=== PATIENT | female | born 2000 | race Two or more races ===

== ENCOUNTER 2023-02-11 18:48 | Emergency (ER) | payer MEDICAID, OTHER ==
[~2023-02-11] VITALS: Ht 172.7 cm; Wt 87.0 kg
[2023-02-11] MEDS: LORazepam 2MG/ML-1ML VIAL IV ONE ×2 (18:50→19:03)
[2023-02-11] MEDS ORDERED: SODIUM CHLORIDE 0.9% 1,000 ML IVB ONE (19:15)
[2023-02-11 19:42] LABS: Basophils # (auto) 0.1 10 ^3/uL (0-0.2); Basophils % (auto) 0.8 % (0.0-2.0); Eosinophils # (auto) 0.1 10 ^3/uL (0-0.8); Eosinophils % (auto) 1.6 % (0.0-7.0); Hematocrit 39.9 % (36.0-46.0); Hemoglobin 14.2 g/dL (12.2-16.2); Lymphocytes % (auto) 26.6 % (10.0-50.0); Mean Corpuscular Hemoglobin 31.2 pg (28.0-32.0); Mean Corpuscular Hgb Conc. 35.6 g/dL (32.0-36.0); Mean Corpuscular Volume 87.5 fL (80.0-100.0); Monocytes # (auto) 0.6 10 ^3/uL (0-1.3); Monocytes % (auto) 8.7 % (0.0-12.0); Neutrophils # (auto) 4.6 10 ^3/uL (1.6-8.6); Neutrophils % (auto) 62.3 % (37.0-80.0); Nucleated Red Blood Cells % 0.1 %; Red Blood Cells 4.56 10^6/uL (4.0-5.20); Red Cell Distribution Width 12.6 % (11.8-14.3); White Blood Cell 7.3 10^3/uL (4.4-10.8)
[2023-02-11 20:14] LABS: Albumin 3.8 g/dL (3.4-5.0); Anion Gap 5 (5-15); Blood Alcohol < 3.0 mg/dL (0-5); Blood Urea Nitrogen 12 mg/dL (7-18); Calcium 9.7 mg/dL (8.5-10.1); Carbon Dioxide 24 mmol/L (21-32); Chloride 110 mmol/L (98-107); Glucose 98 mg/dL (74-106); Potassium 4.1 mmol/L (3.5-5.1); Sodium 139 mmol/L (136-145)
[2023-02-11 20:16] LABS: Alanine Aminotransferase 27 U/L (13-56); Alkaline Phosphatase 75 U/L (45-117); Aspartate Aminotransferase 14 U/L (15-37); BUN/Creatinine Ratio 12.1 (10.0-20.0); Bilirubin, Total 0.4 mg/dL (0.2-1.0); GFR African American 89 mL/min; GFR Non-African American 74 mL/min; Total Protein 7.5 g/dL (6.4-8.2)
[2023-02-11] MEDS ORDERED: MORPHINE SULFATE INJ 2 MG/ml SYRG IV ONE (21:00)
[2023-02-11 21:35] VITALS: BP 107/60
[2023-02-11 22:00] LABS: Alcohol, Urine < 3.0 mg/dL (0-10); Amphetamine Screen, Urine NEGATIVE (NEGATIVE); Barbiturate Scree,Urine NEGATIVE (NEGATIVE); Benzodiazephine Screen, Urine NEGATIVE (NEGATIVE); Cannabinoid Screen, Urine NEGATIVE (NEGATIVE); Cocaine Screen, Urine NEGATIVE (NEGATIVE); Opiate Scree,Urine NEGATIVE (NEGATIVE); Phencyclidine Screen, Urine NEGATIVE (NEGATIVE)
== END 2023-02-11 22:15 | disposition home or self-care (01) ==
LOC: EDUNIT# 18:48 → ER 18:48 → EDBD 18:48 → ER 22:15
DX: S40.012A Contusion of left shoulder, initial encounter (principal); R56.9 Unspecified convulsions; X58.XXXA Exposure to other specified factors, initial encounter; Y93.89 Activity, other specified; Y92.89 Other specified places as the place of occurrence of the external cause; Y99.8 Other external cause status
CPT/HCPCS: 36415; 70450; 73030; 80053; 80307; 80320; 85025; 96365; 96375; 99285; J1953; J2270; J7030; J7060

== ENCOUNTER 2023-07-05 17:06 | Emergency (ER) | payer MEDICAID ==
[~2023-07-05] VITALS: Ht 172.7 cm; Wt 86.2 kg
[2023-07-05 18:21] LABS: Urine Bacteria FEW /hpf (None Seen); Urine Blood Negative /uL (Negative); Urine Clarity HAZY (Clear); Urine Color Yellow (Yellow); Urine Protein, UAD TRACE (Negative); Urine Specific Gravity 1.016 (1.001-1.035); Urine Urobilinogen Normal (Negative); Urine WBC 16 /hpf (0 - 5); Urine pH 7.5 (5.0-8.0)
[2023-07-05] MEDS ORDERED: PROCHLORPERAZINE EDISYLATE 5 MG/ML 2ML VIAL IV ONE (18:45)
[2023-07-05] MEDS ORDERED: LORazepam 2MG/ML-1ML VIAL IV ONE (19:00)
[2023-07-05 19:08] VITALS: PULSE 118; RESP 23; O2SAT 100
[2023-07-05 19:12] LABS: Basophils # (auto) 0.1 10 ^3/uL (0-0.2); Basophils % (auto) 0.6 % (0.0-2.0); Eosinophils # (auto) 0.3 10 ^3/uL (0-0.8); Eosinophils % (auto) 2.9 % (0.0-7.0); Hematocrit 44.4 % (36.0-46.0); Hemoglobin 15.2 g/dL (12.2-16.2); Lymphocytes # (auto) 2.7 10 ^3/uL (0.4-5.4); Lymphocytes % (auto) 31.2 % (10.0-50.0); Mean Corpuscular Hemoglobin 31.2 pg (28.0-32.0); Mean Corpuscular Hgb Conc. 34.2 g/dL (32.0-36.0); Mean Corpuscular Volume 91.3 fL (80.0-100.0); Monocytes # (auto) 0.9 10 ^3/uL (0-1.3); Monocytes % (auto) 10.6 % (0.0-12.0); Neutrophils # (auto) 4.8 10 ^3/uL (1.6-8.6); Neutrophils % (auto) 54.7 % (37.0-80.0); Nucleated Red Blood Cells % 0.2 %; Red Blood Cells 4.86 10^6/uL (4.0-5.20); White Blood Cell 8.7 10^3/uL (4.4-10.8)
[2023-07-05 19:18] LABS: Amphetamine Screen, Urine Neg (NEGATIVE); Barbiturate Scree,Urine Neg (NEGATIVE); Benzodiazephine Screen, Urine Neg (NEGATIVE); Cannabinoid Screen, Urine Neg (NEGATIVE); Cocaine Screen, Urine Neg (NEGATIVE); Opiate Scree,Urine Neg (NEGATIVE); Phencyclidine Screen, Urine Neg (NEGATIVE)
[2023-07-05 19:25] VITALS: BP 143/70; PULSE 93; RESP 14; O2SAT 95
[2023-07-05 19:40] LABS: Alanine Aminotransferase 13 U/L (7-40); Albumin 5.4 g/dL (3.2-4.8); Alkaline Phosphatase 110 U/L (46-116); Anion Gap 11.6 (5-15); BUN/Creatinine Ratio 8.6 (10.0-20.0); Blood Alcohol < 3.0 mg/dL (<10); Blood Urea Nitrogen 10 mg/dL (9-23); Calcium 10.1 mg/dL (8.7-10.4); Carbon Dioxide 17.4 mmol/L (20-30); Chloride 111 mmol/L (98-107); Glucose 92 mg/dL (74-106); Potassium 3.7 mmol/L (3.5-5.1); Sodium 140 mmol/L (136-145)
[2023-07-05 19:41] LABS: Bilirubin, Total 0.4 mg/dL (0.2-1.0); Total Protein 8.3 g/dL (5.7-8.2)
[2023-07-05 20:01] LABS: Aspartate Aminotransferase 16 U/L (13-40)
[2023-07-05] MEDS ORDERED: cefTRIAXone 1GM/50ML D5W 50 ML IV ONE (21:15)
[2023-07-05] MEDS ORDERED: CIPR-173 PO (21:38)
[2023-07-06] VITALS: PULSE 61
== END 2023-07-06 01:14 | disposition home or self-care (01) ==
LOC: ER 17:06
DX: R56.9 Unspecified convulsions (principal); N39.0 Urinary tract infection, site not specified
CPT/HCPCS: 36415; 70450; 74176; 80053; 80307; 80320; 81001; 85025; 96365; 96375; 99285; J0696; J0780; J1953; J2060; J7060

== ENCOUNTER 2023-09-13 16:55 | Inpatient (IN) | payer MEDICAID ==
[~2023-09-13] VITALS: Ht 153.9 cm; Wt 89.0 kg
[~2023-09-13 16:55] MED LIST: CIPR-173 PO
[2023-09-13 18:27] LABS: Basophils # (auto) 0.1 10 ^3/uL (0-0.2); Eosinophils # (auto) 0.1 10 ^3/uL (0-0.8); Hematocrit 41.7 % (36.0-46.0); Hemoglobin 14.2 g/dL (12.2-16.2); Lymphocytes # (auto) 1.8 10 ^3/uL (0.4-5.4); Mean Corpuscular Hemoglobin 31.3 pg (28.0-32.0); Mean Corpuscular Hgb Conc. 34.1 g/dL (32.0-36.0); Mean Corpuscular Volume 91.8 fL (80.0-100.0); Monocytes # (auto) 0.5 10 ^3/uL (0-1.3); Monocytes % (auto) 9.3 % (0.0-12.0); Neutrophils # (auto) 3.5 10 ^3/uL (1.6-8.6); Neutrophils % (auto) 58.7 % (37.0-80.0); Red Blood Cells 4.54 10^6/uL (4.0-5.20); Red Cell Distribution Width 12.3 % (11.8-14.3); White Blood Cell 5.9 10^3/uL (4.4-10.8)
[2023-09-13 18:36] LABS: Albumin 4.9 g/dL (3.2-4.8); Alkaline Phosphatase 146 U/L (46-116); Anion Gap 8 (5-15); Aspartate Aminotransferase 13 U/L (13-40); Bilirubin, Total 0.3 mg/dL (0.2-1.0); Blood Urea Nitrogen 8 mg/dL (9-23); Calcium 9.4 mg/dL (8.5-10.1); Carbon Dioxide 24 mmol/L (20-30); Chloride 110 mmol/L (98-107); Glucose 98 mg/dL (74-106); Sodium 142 mmol/L (136-145); Total Protein 7.6 g/dL (5.7-8.2)
[2023-09-13 18:43] LABS: Alanine Aminotransferase < 9 U/L (7-40)
[2023-09-13] MEDS ORDERED: levETIRAcetam 1000 mg/100ml 100 ML IV ONE (19:00)
[2023-09-13] MEDS ORDERED: LORazepam 2MG/ML-1ML VIAL IV ONE (19:00)
[2023-09-13 19:28] LABS: Urine Bacteria NONE SEEN /hpf (None Seen); Urine Blood 1+ /uL (Negative); Urine Clarity Clear (Clear); Urine Color Colorless (Yellow); Urine Protein, UAD Negative (Negative); Urine Specific Gravity 1.017 (1.001-1.035); Urine Urobilinogen Normal (Negative); Urine WBC 3 /hpf (0 - 5); Urine pH 6.5 (5.0-8.0)
[2023-09-13 19:38] LABS: Amphetamine Screen, Urine Neg (NEGATIVE); Barbiturate Scree,Urine Neg (NEGATIVE); Benzodiazephine Screen, Urine Neg (NEGATIVE); Cannabinoid Screen, Urine Neg (NEGATIVE); Cocaine Screen, Urine Neg (NEGATIVE); Opiate Scree,Urine Neg (NEGATIVE); Phencyclidine Screen, Urine Neg (NEGATIVE)
[2023-09-13] MEDS ORDERED: levETIRAcetam 500 MG/5ML INJ IV ONE (20:23)
[2023-09-13] MEDS ORDERED: HYDROcodone-ACET 5/325MG TAB PO ONE (22:15)
[2023-09-13] MEDS ORDERED: TEMAZEPAM 15 MG CAP PO PRN (22:45)
[2023-09-13] MEDS ORDERED: MORPHINE SULFATE INJ 2 MG/ml SYRG IV PRN (22:45)
[2023-09-13] MEDS ORDERED: LORazepam 2MG/ML-1ML VIAL IV PRN (22:45)
[2023-09-13] MEDS ORDERED: ONDANSETRON HCL 4 MG/2 ML VIAL IV PRN (22:45)
[2023-09-13] MEDS ORDERED: NITROGLYCERIN 0.4 MG SL TAB SL PRN (22:45)
[2023-09-13 23:50] VITALS: RESP 18; O2SAT 96
[2023-09-14] MEDS: ACETAMINOPHEN 325 MG TAB PO PRN ×2 (00:31→15:50)
[2023-09-14 05:01] LABS: Chloride 110 mmol/L (98-107); Potassium 3.6 mmol/L (3.5-5.1); Sodium 141 mmol/L (136-145)
[2023-09-14 05:02] LABS: Anion Gap 7 (5-15); Calcium 8.7 mg/dL (8.7-10.4); Carbon Dioxide 24 mmol/L (20-30)
[2023-09-14 05:07] LABS: BUN/Creatinine Ratio 9.5 (10.0-20.0); Blood Urea Nitrogen 7 mg/dL (9-23); Glucose 85 mg/dL (74-106)
[2023-09-14 07:45] VITALS: RESP 18; O2SAT 98
[2023-09-14] MEDS ORDERED: LORazepam 0.5 MG TAB PO PRN (09:30)
[2023-09-14] MEDS: OXcarbazepine 300 MG TAB PO SCH ×3 (09:30→21:27)
[2023-09-14] MEDS ORDERED: OXcarbazepine 300 MG TAB PO SCH (10:00)
[2023-09-14 17:00] VITALS: BP_SYST 100; BP_SYST 118; BP_DIAS 56; BP_DIAS 66; PULSE 72; PULSE 85; RESP 16; RESP 19; TEMP 98.7; O2SAT 97; O2SAT 98
[2023-09-14 20:00] VITALS: PULSE 58
[2023-09-14 21:32] VITALS: BP 100/60; PULSE 103; RESP 14; TEMP 98.7; O2SAT 96
[2023-09-15 04:43] VITALS: BP 97/61; PULSE 61; RESP 16; TEMP 98; O2SAT 99
[2023-09-15] MEDS ORDERED: OXCA600T3 PO (07:47)
[2023-09-15] MEDS: ACETAMINOPHEN 325 MG TAB PO PRN (07:52)
[2023-09-15 08:00] VITALS: PULSE 68; PULSE 70; RESP 18; O2SAT 96
[2023-09-15 09:00] VITALS: BP 142/52; PULSE 75; RESP 15; TEMP 98.2; O2SAT 100
[2023-09-15] MEDS: OXcarbazepine 300 MG TAB PO SCH (09:20)
[2023-09-15 13:00] VITALS: BP 121/78; PULSE 82; RESP 19; TEMP 97.9; O2SAT 99
[2023-09-15 15:16] VITALS: TEMP 36.6
== END 2023-09-15 16:00 | disposition home or self-care (01) | DRG 53 ==
LOC: EDBD 16:55 → ER 16:55 → TELE 22:49 → TELE-WESTW 09-14 15:38
PROVIDERS: ADMIT Nurse Practitioner; ATTEND Nurse Practitioner Acute Care
DX: G40.401 Other generalized epilepsy and epileptic syndromes, not intractable, with status epilepticus (principal); E66.9 Obesity, unspecified; F41.9 Anxiety disorder, unspecified; Z68.37 Body mass index [BMI] 37.0-37.9, adult; Z79.899 Other long term (current) drug therapy; Z81.8 Family history of other mental and behavioral disorders; Z82.49 Family history of ischemic heart disease and other diseases of the circulatory system; Z83.3 Family history of diabetes mellitus
CPT/HCPCS: 36415; 70450; 80048; 80053; 80307; 81001; 81025; 82550; 84146; 85025; 93005; 95819; 96365; 96375; 99291; G0378

== ENCOUNTER 2023-09-21 11:58 | Emergency (ER) | payer MEDICAID ==
[~2023-09-21] VITALS: Ht 162.6 cm; Wt 90.0 kg
[2023-09-21 11:58] VITALS: BP 112/67; PULSE 110; RESP 20; O2SAT 100
[~2023-09-21 11:58] MED LIST changes: -CIPR-173 PO; +OXCA600T3 PO
[2023-09-21 13:22] LABS: Basophils # (auto) 0 10 ^3/uL (0-0.2); Basophils % (auto) 0.8 % (0.0-2.0); Eosinophils # (auto) 0 10 ^3/uL (0-0.8); Hematocrit 41.4 % (36.0-46.0); Hemoglobin 14.1 g/dL (12.2-16.2); Lymphocytes # (auto) 1.5 10 ^3/uL (0.4-5.4); Lymphocytes % (auto) 32.5 % (10.0-50.0); Mean Corpuscular Hemoglobin 31.2 pg (28.0-32.0); Mean Corpuscular Volume 91.7 fL (80.0-100.0); Monocytes # (auto) 0.4 10 ^3/uL (0-1.3); Monocytes % (auto) 8.2 % (0.0-12.0); Neutrophils # (auto) 2.6 10 ^3/uL (1.6-8.6); Neutrophils % (auto) 57.5 % (37.0-80.0); Nucleated Red Blood Cells % 0.1 %; Red Blood Cells 4.51 10^6/uL (4.0-5.20); Red Cell Distribution Width 12.2 % (11.8-14.3); White Blood Cell 4.6 10^3/uL (4.4-10.8)
[2023-09-21 13:55] LABS: Alanine Aminotransferase 13 U/L (7-40); Albumin 4.6 g/dL (3.2-4.8); Alkaline Phosphatase 80 U/L (46-116); Anion Gap 8 (5-15); Aspartate Aminotransferase 13 U/L (13-40); BUN/Creatinine Ratio 7.8 (10.0-20.0); Blood Urea Nitrogen 6 mg/dL (9-23); Calcium 9.5 mg/dL (8.5-10.1); Carbon Dioxide 23 mmol/L (20-30); Chloride 110 mmol/L (98-107); Glucose 83 mg/dL (74-106); Potassium 3.9 mmol/L (3.5-5.1); Sodium 141 mmol/L (136-145)
[2023-09-21 13:56] LABS: Bilirubin, Total 0.4 mg/dL (0.2-1.0); Total Protein 7.1 g/dL (5.7-8.2)
== END 2023-09-21 16:09 | disposition left against medical advice (07) ==
LOC: ER 11:58 → EDBD 11:58 → ER 16:09
DX: R56.9 Unspecified convulsions (principal); Z53.21 Procedure and treatment not carried out due to patient leaving prior to being seen by health care provider
CPT/HCPCS: 36415; 80053; 85025

== ENCOUNTER 2023-10-22 15:26 | Inpatient (IN) | payer MEDICAID ==
[~2023-10-22] VITALS: Ht 175.3 cm; Wt 107.5 kg
[2023-10-22 15:44] VITALS: PULSE 98; RESP 17; O2SAT 98
[2023-10-22] MEDS ORDERED: levETIRAcetam 1000 mg/100ml 100 ML IV ONE (16:00)
[2023-10-22 16:51] LABS: Basophils # (auto) 0 10 ^3/uL (0-0.2); Basophils % (auto) 0.5 % (0.0-2.0); Eosinophils # (auto) 0.1 10 ^3/uL (0-0.8); Eosinophils % (auto) 1.3 % (0.0-7.0); Hematocrit 40.3 % (36.0-46.0); Lymphocytes # (auto) 1.8 10 ^3/uL (0.4-5.4); Lymphocytes % (auto) 32.6 % (10.0-50.0); Mean Corpuscular Hemoglobin 31.1 pg (28.0-32.0); Mean Corpuscular Hgb Conc. 34.7 g/dL (32.0-36.0); Mean Corpuscular Volume 89.7 fL (80.0-100.0); Monocytes # (auto) 0.5 10 ^3/uL (0-1.3); Monocytes % (auto) 8.5 % (0.0-12.0); Neutrophils # (auto) 3.2 10 ^3/uL (1.6-8.6); Neutrophils % (auto) 57.1 % (37.0-80.0); Red Cell Distribution Width 12.4 % (11.8-14.3); White Blood Cell 5.6 10^3/uL (4.4-10.8)
[2023-10-22 17:01] LABS: Alanine Aminotransferase 15 U/L (7-40); Alkaline Phosphatase 89 U/L (46-116); Aspartate Aminotransferase 12 U/L (13-40)
[2023-10-22 17:02] LABS: Albumin 4.7 g/dL (3.2-4.8); Anion Gap 10 (5-15); BUN/Creatinine Ratio 6.4 (10.0-20.0); Bilirubin, Total 0.4 mg/dL (0.2-1.0); Blood Alcohol 4.7 mg/dL (<10); Blood Urea Nitrogen 5 mg/dL (9-23); Calcium 9.5 mg/dL (8.5-10.1); Carbon Dioxide 22 mmol/L (20-30); Chloride 108 mmol/L (98-107); Glucose 99 mg/dL (74-106); Potassium 3.7 mmol/L (3.5-5.1); Sodium 140 mmol/L (136-145); Total Protein 7.2 g/dL (5.7-8.2)
[2023-10-22 19:54] VITALS: PULSE 75; RESP 15; O2SAT 97
[2023-10-22] MEDS: LORazepam 2MG/ML-1ML VIAL IV ONE (20:15)
[2023-10-22] MEDS ORDERED: LORazepam 2MG/ML-1ML VIAL ONE (20:15)
[2023-10-22] MEDS ORDERED: LORazepam 2MG/ML-1ML VIAL IV ONE ×3 (20:30→22:15)
[2023-10-22] MEDS ORDERED: ACETAMINOPHEN 325 MG TAB PO ONE (22:45)
[2023-10-23] MEDS ORDERED: TEMAZEPAM 15 MG CAP PO PRN (02:15)
[2023-10-23] MEDS ORDERED: ONDANSETRON HCL 4 MG/2 ML VIAL IV PRN (02:15)
[2023-10-23] MEDS ORDERED: SODIUM CHLORIDE 0.9% 500 ML IV ONE (04:15)
[2023-10-23 04:17] LABS: COVID19 ANTIGEN SOFIA FIA NEGATIVE (NEGATIVE)
[2023-10-23 08:44] LABS: Basophils # (auto) 0 10 ^3/uL (0-0.2); Basophils % (auto) 0.5 % (0.0-2.0); Eosinophils # (auto) 0.1 10 ^3/uL (0-0.8); Eosinophils % (auto) 1.5 % (0.0-7.0); Hematocrit 38.1 % (36.0-46.0); Hemoglobin 12.9 g/dL (12.2-16.2); Lymphocytes % (auto) 38.9 % (10.0-50.0); Mean Corpuscular Hemoglobin 30.8 pg (28.0-32.0); Mean Corpuscular Hgb Conc. 33.8 g/dL (32.0-36.0); Mean Corpuscular Volume 91.3 fL (80.0-100.0); Monocytes # (auto) 0.5 10 ^3/uL (0-1.3); Monocytes % (auto) 9.2 % (0.0-12.0); Neutrophils # (auto) 2.5 10 ^3/uL (1.6-8.6); Neutrophils % (auto) 49.9 % (37.0-80.0); Red Blood Cells 4.17 10^6/uL (4.0-5.20); Red Cell Distribution Width 12.5 % (11.8-14.3)
[2023-10-23 08:53] LABS: Anion Gap 10 (5-15); Carbon Dioxide 20 mmol/L (20-30); Chloride 110 mmol/L (98-107); Potassium 3.6 mmol/L (3.5-5.1); Sodium 140 mmol/L (136-145)
[2023-10-23 08:55] LABS: Calcium 8.7 mg/dL (8.7-10.4)
[2023-10-23 08:59] LABS: Glucose 85 mg/dL (74-106)
[2023-10-23 09:00] LABS: Magnesium 2.2 mg/dL (1.6-2.6)
[2023-10-23 09:05] LABS: BUN/Creatinine Ratio 6.9 (10.0-20.0); Blood Urea Nitrogen < 5 mg/dL (9-23)
[2023-10-23 09:30] VITALS: PULSE 81; RESP 16; O2SAT 98
[2023-10-23] MEDS ORDERED: LORazepam 2MG/ML-1ML VIAL IV PRN (09:45)
[2023-10-23] MEDS ORDERED: OXcarbazepine 300 MG TAB PO SCH ×2 (10:00)
[2023-10-23] MEDS: OXcarbazepine 300 MG TAB PO SCH ×2 (10:34→21:49)
[2023-10-23] MEDS: LORazepam 2MG/ML-1ML VIAL IV PRN (10:44)
[2023-10-23 11:18] LABS: Urine Bacteria FEW /hpf (None Seen); Urine Blood 3+ /uL (Negative); Urine Clarity HAZY (Clear); Urine Color Yellow (Yellow); Urine Mucus FEW (None Seen); Urine Protein, UAD TRACE (Negative); Urine Specific Gravity 1.016 (1.001-1.035); Urine Urobilinogen Normal (Negative); Urine WBC 25 /hpf (0 - 5)
[2023-10-23 11:22] LABS: Amphetamine Screen, Urine Neg (NEGATIVE); Barbiturate Scree,Urine Neg (NEGATIVE); Benzodiazephine Screen, Urine Pos (NEGATIVE); Cannabinoid Screen, Urine Neg (NEGATIVE); Cocaine Screen, Urine Neg (NEGATIVE); Opiate Scree,Urine Neg (NEGATIVE); Phencyclidine Screen, Urine Neg (NEGATIVE)
[2023-10-23 13:04] LABS: Basophils # (auto) 0 10 ^3/uL (0-0.2); Basophils % (auto) 0.6 % (0.0-2.0); Eosinophils # (auto) 0 10 ^3/uL (0-0.8); Eosinophils % (auto) 0.9 % (0.0-7.0); Hematocrit 41.1 % (36.0-46.0); Hemoglobin 13.9 g/dL (12.2-16.2); Lymphocytes # (auto) 1.7 10 ^3/uL (0.4-5.4); Lymphocytes % (auto) 33.4 % (10.0-50.0); Mean Corpuscular Hemoglobin 30.8 pg (28.0-32.0); Mean Corpuscular Hgb Conc. 33.8 g/dL (32.0-36.0); Mean Corpuscular Volume 91.1 fL (80.0-100.0); Monocytes # (auto) 0.4 10 ^3/uL (0-1.3); Monocytes % (auto) 7.5 % (0.0-12.0); Neutrophils # (auto) 2.9 10 ^3/uL (1.6-8.6); Neutrophils % (auto) 57.6 % (37.0-80.0); Nucleated Red Blood Cells % 0.1 %; Red Blood Cells 4.51 10^6/uL (4.0-5.20); Red Cell Distribution Width 12.2 % (11.8-14.3)
[2023-10-23 13:13] LABS: Alanine Aminotransferase 10 U/L (7-40); Albumin 4.6 g/dL (3.2-4.8); Alkaline Phosphatase 87 U/L (46-116); Anion Gap 9 (5-15); Aspartate Aminotransferase 15 U/L (13-40); BUN/Creatinine Ratio 6.4 (10.0-20.0); Bilirubin, Total 0.6 mg/dL (0.2-1.0); Blood Urea Nitrogen 5 mg/dL (9-23); Calcium 9.5 mg/dL (8.5-10.1); Carbon Dioxide 22 mmol/L (20-30); Chloride 109 mmol/L (98-107); Glucose 82 mg/dL (74-106); Potassium 3.8 mmol/L (3.5-5.1); Sodium 140 mmol/L (136-145); Total Protein 7.2 g/dL (5.7-8.2)
[2023-10-23 13:19] LABS: INR 1.09 (0.9-1.15); Prothrombin Time 11.4 sec (9.3-11.8)
[2023-10-23] MEDS ORDERED: cefTRIAXone 1GM/50ML D5W 50 ML IV ONE (14:00)
[2023-10-23 16:58] VITALS: BP 100/59; PULSE 69; RESP 16; TEMP 97.7; O2SAT 96
[2023-10-23 18:49] LABS: Rapid Influenza A Negative (Negative); Rapid Influenza B Negative (Negative)
[2023-10-23] MEDS: ACETAMINOPHEN 325 MG TAB PO PRN (21:49)
[2023-10-23 22:00] VITALS: BP 137/72; PULSE 91; RESP 18; TEMP 98; O2SAT 95
[2023-10-24 05:00] VITALS: BP 156/88; PULSE 81; RESP 19; TEMP 97.6; O2SAT 90
[2023-10-24 06:25] LABS: Basophils # (auto) 0 10 ^3/uL (0-0.2); Basophils % (auto) 0.5 % (0.0-2.0); Eosinophils # (auto) 0.1 10 ^3/uL (0-0.8); Eosinophils % (auto) 1.9 % (0.0-7.0); Hematocrit 40.4 % (36.0-46.0); Lymphocytes # (auto) 2.1 10 ^3/uL (0.4-5.4); Lymphocytes % (auto) 34.2 % (10.0-50.0); Mean Corpuscular Hemoglobin 31.5 pg (28.0-32.0); Mean Corpuscular Hgb Conc. 34.5 g/dL (32.0-36.0); Mean Corpuscular Volume 91.1 fL (80.0-100.0); Monocytes # (auto) 0.5 10 ^3/uL (0-1.3); Monocytes % (auto) 8.4 % (0.0-12.0); Neutrophils # (auto) 3.4 10 ^3/uL (1.6-8.6); Nucleated Red Blood Cells % 0.1 %; Red Blood Cells 4.44 10^6/uL (4.0-5.20); Red Cell Distribution Width 12.3 % (11.8-14.3); White Blood Cell 6.1 10^3/uL (4.4-10.8)
[2023-10-24 06:51] LABS: Anion Gap 9 (5-15); Calcium 9.1 mg/dL (8.7-10.4); Carbon Dioxide 24 mmol/L (20-30); Chloride 108 mmol/L (98-107); Potassium 3.8 mmol/L (3.5-5.1); Sodium 141 mmol/L (136-145)
[2023-10-24 06:57] LABS: BUN/Creatinine Ratio 9.3 (10.0-20.0); Blood Urea Nitrogen 8 mg/dL (9-23); Glucose 88 mg/dL (74-106)
[2023-10-24 06:58] LABS: Magnesium 2.1 mg/dL (1.6-2.6)
[2023-10-24 08:00] VITALS: BP 112/63; PULSE 95; RESP 20; TEMP 97.8; O2SAT 98
[2023-10-24] MEDS ORDERED: cefTRIAXone 1GM/50ML D5W 50 ML IV SCH (09:00)
[2023-10-24] MEDS: OXcarbazepine 300 MG TAB PO SCH (10:07)
[2023-10-24] MEDS: ACETAMINOPHEN 325 MG TAB PO PRN (10:08)
[2023-10-24] MEDS: LORazepam 2MG/ML-1ML VIAL IV PRN (10:56)
[2023-10-27 05:07] LABS: RPR Non Reactive (Non Reactive)
== END 2023-10-24 12:05 | disposition left against medical advice (07) | DRG 53 ==
LOC: EDBD 15:26 → EDUNIT# 15:26 → ER 15:26 → OVERFLOW 10-23 02:03 → EAST 10-23 16:58
PROVIDERS: ADMIT Internal Medicine; ATTEND Internal Medicine
DX: G40.401 Other generalized epilepsy and epileptic syndromes, not intractable, with status epilepticus (principal); F32.A Depression, unspecified; N39.0 Urinary tract infection, site not specified; F41.9 Anxiety disorder, unspecified; Z53.29 Procedure and treatment not carried out because of patient's decision for other reasons; Z20.822 Contact with and (suspected) exposure to COVID-19; Z81.8 Family history of other mental and behavioral disorders; Z79.899 Other long term (current) drug therapy; Z82.49 Family history of ischemic heart disease and other diseases of the circulatory system; Z83.3 Family history of diabetes mellitus
CPT/HCPCS: 36415; 70450; 71045; 80048; 80053; 80307; 80320; 81001; 83735; 84146; 84443; 84702; 85025; 85610; 85730; 86592; 87086; 87426; 87804; 96365; 96375; 99291; G0378

== ENCOUNTER 2024-08-02 09:53 | Emergency (ER) | payer MEDICAID ==
[~2024-08-02] VITALS: Ht 167.6 cm; Wt 69.0 kg
[2024-08-02 10:08] VITALS: TEMP 98.4
[2024-08-02] MEDS: SODIUM CHLORIDE 0.9% 1,000 ML IV ONE (10:38)
[2024-08-02] MEDS: LORazepam 2MG/ML-1ML VIAL IV ONE (10:38)
[2024-08-02] MEDS: LORazepam 2MG/ML-1ML VIAL ONE (10:41)
[2024-08-02 11:14] VITALS: PULSE 93; RESP 18; O2SAT 98
[2024-08-02 11:15] LABS: Basophils # (auto) 0 10 ^3/uL (0-0.2); Basophils % (auto) 0.6 % (0.0-2.0); Eosinophils # (auto) 0.1 10 ^3/uL (0-0.8); Eosinophils % (auto) 0.8 % (0.0-7.0); Hematocrit 37.3 % (36.0-46.0); Hemoglobin 13.3 g/dL (12.2-16.2); Lymphocytes # (auto) 1.4 10 ^3/uL (0.4-5.4); Lymphocytes % (auto) 22.3 % (10.0-50.0); Mean Corpuscular Hgb Conc. 35.6 g/dL (32.0-36.0); Mean Corpuscular Volume 89.9 fL (80.0-100.0); Monocytes # (auto) 0.5 10 ^3/uL (0-1.3); Monocytes % (auto) 8.5 % (0.0-12.0); Neutrophils # (auto) 4.3 10 ^3/uL (1.6-8.6); Neutrophils % (auto) 67.8 % (37.0-80.0); Platelet Count (auto) 264 10^3/uL (140-450); Red Blood Cells 4.15 10^6/uL (4.0-5.20); White Blood Cell 6.4 10^3/uL (4.4-10.8)
[2024-08-02 11:20] LABS: Chloride 110 mmol/L (98-107); Sodium 139 mmol/L (136-145)
[2024-08-02 11:21] LABS: Anion Gap 6 (5-15); Calcium 9.1 mg/dL (8.7-10.4); Carbon Dioxide 23 mmol/L (20-31)
[2024-08-02 11:26] LABS: BUN/Creatinine Ratio 10.1 (10.0-20.0); Blood Urea Nitrogen 9 mg/dL (9-23); Glucose 88 mg/dL (74-106)
[2024-08-02] MEDS: TOPIRAMATE 25 MG TAB PO ONE (11:46)
[2024-08-02] MEDS: OXcarbazepine 300 MG TAB PO ONE (11:46)
[2024-08-02] MEDS: KETOROLAC TROMETH 30 MG/ML 1ML VIAL IV ONE (11:46)
[2024-08-02] MEDS: ONDANSETRON HCL 4 MG/2 ML VIAL IV ONE (11:46)
[2024-08-02 12:30] VITALS: BP 87/40; PULSE 63; RESP 16; O2SAT 99
[2024-08-02 12:55] LABS: Urine Bacteria None Seen /hpf (None Seen)
[2024-08-02 13:21] LABS: Urine Blood 2+ /uL (Negative); Urine Clarity Clear (Clear); Urine Color Colorless (Yellow); Urine Protein, UAD Negative (Negative); Urine Specific Gravity 1.011 (1.001-1.035); Urine Urobilinogen Normal (Negative); Urine WBC 6 /hpf (0 - 5); Urine pH 6.5 (5.0-9.0)
[2024-08-02] MEDS: LORazepam 2MG/ML-1ML VIAL IV PRN (14:27)
[2024-08-02] MEDS ORDERED: CEPH500T PO (14:33)
[2024-08-02] MEDS: cefTRIAXone 1GM/50ML D5W 50 ML IV ONE (15:09)
== END 2024-08-02 15:43 | disposition home or self-care (01) ==
LOC: EDBD 09:53 → EDUNIT# 09:53 → ER 09:53
DX: G40.909 Epilepsy, unspecified, not intractable, without status epilepticus (principal); R10.2 Pelvic and perineal pain; H00.015 Hordeolum externum left lower eyelid; N39.0 Urinary tract infection, site not specified; R41.82 Altered mental status, unspecified; Z90.89 Acquired absence of other organs
CPT/HCPCS: 36415; 80048; 81001; 84702; 85025; 96361; 96365; 96375; 96376; 99284; J0696; J1885; J2060; J2405; J7030

== ENCOUNTER 2025-02-12 15:30 | Inpatient (IN) | payer MEDICAID ==
[~2025-02-12] VITALS: Ht 172.7 cm; Wt 96.6 kg
[~2025-02-12 15:30] MED LIST changes: +CEPH500T PO
[2025-02-12] MEDS: LORazepam 2MG/ML-1ML VIAL IV ONE ×3 (15:37→18:37)
[2025-02-12] MEDS: LORazepam 2MG/ML-1ML VIAL ONE ×2 (15:39→16:41)
--- NOTE | 2025-02-12 15:43 | ED.PDOC ---
HPI (NEURO) HPI Comments HPI: Poor Historian. 24-year-old female persistent with sharp by EMS from clinic after she had a with the seizure there without any fall or trauma. She was assisted down to a chair. While she was in route she had per fire department to additional episodes of seizure lasting no more than a minute each. She was given 5 mg of Versed prior to arrival. Patient is back to her baseline on arrival to ED. Able to answer questions. She said that she was at her neurologist clinic this morning and told her everything is okay and continue taking the same dose of medications Topamax 1-1/2 pill twice a day. Patient states compliance with her medications. Vitals Temperature: 98.4 F Respiratory rate: 16 SpO2: 97% RA Heart rate: 112 Blood pressure: 102/51 Past Medical History: Seizures, anemia, depression, GERD, chronic back pain Past Surgical History: Tonsillectomy REVIEW OF SYSTEMS: CONSTITUTIONAL: Denies acute: fever, diaphoresis, chills, HEAD: Denies acute: headache, photophobia Eyes: Denies acute: Double vision, vision loss, eye pain, eye discharge. EARS: Denies acute: tinnitus, hearing loss, ear discharge, ear pain, THROAT: Denies acute: sore throat, swelling, difficulty swallowing , pain with swallowing, change in voice. NECK: Denies acute: neck pain, neck swelling, stiff neck. HEART: Denies acute : chest pain, palpitations, LUNGS: Denies acute: SOB, wheezing, cough, hemoptysis ABDOMEN: Denies acute: abdominal pain, Nausea, Vomiting, diarrhea, melena , hematemesis, hematochezia SKIN: Denies acute: rash, redness, lesions, itchiness. EXTREMITIES: Denies acute: calf pain, numbness, tingling, weakness, denies pain in extremity. Denies acute: Low back pain. Neuro: Denies acute: focal neurological deficit, motor or sensory focal neurological deficit, confusion, change in mental status, loss of bowel or bladder function, cauda equina like symptoms. : Denies acute: dysuria, hematuria, flank pain, increase in urinary frequency. PSYCH: Denies acute: hallucination, suicidal ideation, homicidal ideation. FEMALE: Denies acute: abnormal vaginal bleeding, foul odor, unusual discharge. PHYSICAL EXAM: General: ----[id number]----acute distress, awake and alert. Head: normocephalic, atraumatic. Neck: supple, trachea is midline, no swelling. Throat: Normal phonation. Eyes:, no erythema, no purulent discharge, no proptosis, no icterus. Heart: regular tachycardic, no significant murmur appreciated. Lungs: no apparent respiratory distress, Able to speak in full sentences. No wheezing, no rhonchi, no crackles. No stridors Clear to auscultation bilaterally. Abdomen: non tender to palpation, non distended, soft, no guarding, no rebound, + bowel sounds. Neuro: Awake, Alert, oriented to name, self, situation, follows commands GCS=15. Speech is normal. Skin: no petechia, no purpura, no cyanosis, non-pale, not jaundice. Lower extremities: --no - Pitting edema no deformity, no focal swelling, no calf TTP. Makes eye contact. moves all four extremities. Face: no apparent facial droop. PERRLA, EOM-I CN 2-12 are grossly intact, No nystagmus. No nuchal rigidity, Kernig's sign, Brudzinski's sign, no meningeal signs. ED COURSE: Chief Complaint: Seizure Time Seen by MD: 15:35 Primary Care Provider: UNKNOWN Reviewed Notes: Nurses Notes, Candle Wrapper Notes, Medications, Allergies Information Source: Patient, Emergency Med Personnel Mode of Arrival: EMS Past Medical History PAST MEDICAL HISTORY: Seizures Surgical History: Tonsillectomy [employer]LE IDENTITY MANAGEMENT CONSULTANT History: Denies all [employer] IDENTITY MANAGEMENT CONSULTANT Hx Family History Family History: Reviewed,noncontributory to illness Social History Smoker: Non-Smoker Alcohol: Denies ETOH Use Drugs: Denies Drug Use Lives In: Home Was a procedure done? Was a procedure done?: No Differential Diagnosis (SZ) Seizure: Syncope, Encephalopathy, Epilepsy-Break Through, Epilepsy-Status, Other (SEIZUREDDX include not limited to CVA, cerebellar ischemia/infarct, carotid stenosis, vertebral/carotid artery dissection,, vertebrobasillary insufficiency, Intracranial mass/infection/bleed, encephalopathy, elctrolyte abnormality, thyroid disease, multiple sclerosis, hypoglycemia, drug toxicity, cardiac arrhythmia, sub-theraputic anti-convulsion medications, known seizure disorder, pseudo-seizure.) X-Ray, Labs, Meds, VS Vital Signs Date Time Temp Pulse Resp B/P (MAP) Pulse Ox O2 Delivery O2 Flow Rate FiO2 02/12/25 16:35 97.8 112 16 112/80 (91) 100 97.8 02/12/25 15:33 140 02/12/25 15:30 98.4 112 16 102/51 (68) 97 98.4 Lab Test 02/12/25 16:07 02/12/25 15:42 Range/Units Topiramate Level 5.0 2.0-25.0 ug/mL White Blood Count 5.6 4.4-10.8 10^3/uL Red Blood Count 4.89 4.0-5.20 10^6/uL Hemoglobin 15.2 12.2-16.2 g/dL Hematocrit 42.8 36.0-46.0 % Mean Corpuscular Volume 87.6 80.0-100.0 fL Mean Corpuscular Hemoglobin 31.1 28.0-32.0 pg Mean Corpuscular Hemoglobin Concent 35.5 32.0-36.0 g/dL Red Cell Distribution Width 13.1 11.8-14.3 % Platelet Count 290 140-450 10^3/uL Mean Platelet Volume 7.9 6.9-10.8 fL Neutrophils (%) (Auto) 59.6 37.0-80.0 % Lymphocytes (%) (Auto) 31.7 10.0-50.0 % Monocytes (%) (Auto) 7.4 0.0-12.0 % Eosinophils (%) (Auto) 0.6 0.0-7.0 % Basophils (%) (Auto) 0.7 0.0-2.0 % Neutrophils # (Auto) 3.3 1.6-8.6 10 ^3/uL Lymphocytes # (Auto) 1.8 0.4-5.4 10 ^3/uL Monocytes # (Auto) 0.4 0-1.3 10 ^3/uL Eosinophils # (Auto) 0 0-0.8 10 ^3/uL Basophils # (Auto) 0 0-0.2 10 ^3/uL Nucleated Red Blood Cells 0.2 % Sodium Level 143 136-145 mmol/L Potassium Level 3.8 3.5-5.1 mmol/L Chloride Level 113 H 98-107 mmol/L Carbon Dioxide Level 18 L 20-31 mmol/L Anion Gap 12 5-15 Blood Urea Nitrogen 8 L 9-23 mg/dL Creatinine 1.03 H 0.550-1.02 mg/dL Glomerular Filtration Rate Calc 77 >90 mL/min BUN/Creatinine Ratio 7.8 L 10.0-20.0 Serum Glucose 89 74-106 mg/dL Lactic Acid Level 2.7 *H 0.4-2.0 mmol/L Calcium Level 9.9 8.7-10.4 mg/dL Magnesium Level 2.1 1.6-2.6 mg/dL Total Bilirubin 1.0 0.2-1.0 mg/dL Aspartate Amino Transferase (AST) 11 L 13-40 U/L Alanine Aminotransferase (ALT) 10 7-40 U/L Alkaline Phosphatase 70 46-116 U/L Troponin I High Sensitivity < 3 L </=34 ng/L Total Protein 7.8 5.7-8.2 g/dL Albumin 5.0 H 3.2-4.8 g/dL Prolactin 13.21 2.8-29.2 ng/mL [place] [address] Ph: [phone] DIAGNOSTIC IMAGING Diagnostic Imaging Report : [id number] Signed PATIENT: JULIAN KHALIL ACCT: [id number] UNIT: [id number] : 2000 LOC: OVERFLOW ROOM / BED: [address] [place] [address] AGE / SEX: 24 / F ADM STATUS: ADM IN SERVICE 1542 ORDERING PHYSICIAN: ROBERT NAM DO PROCEDURE(s): CXRP - CHEST PORTABLE REASON: seizure ORDER NUMBER(s): [id number], ACCESSION NUMBER(s): [id number] EXAMINATION: AP portable chest radiograph CLINICAL HISTORY: seizure COMPARISON: XY CHEST XRAY 1 VIEW on DOS: 10/23/23 FINDINGS: Multiple wires overlie the thorax, partially obscuring evaluation. No dominant consolidations in the visualized lung welch. The costophrenic angles appear clear. No definite pleural effusion or pneumothorax. The cardiomediastinal silhouette appears within normal limits given technique. IMPRESSION: No acute cardiopulmonary findings as visualized. ATED BY: HIMANSHU MURPHY MD DICTATED DATE/TIME: 02/12/252310 SIGNED BY: HIMANSHU MURPHY MD SIGNED DATE/TIME: 02/12/252310 CC: [place] [address] Ph: [phone] DIAGNOSTIC IMAGING Diagnostic Imaging Report : [id number] Signed PATIENT: JULIAN KHALIL ACCT: [id number] UNIT: [id number] : 2000 LOC: OVERFLOW ROOM / BED: [address] [place] [address] AGE / SEX: 24 / F ADM STATUS: ADM IN SERVICE 41 ORDERING PHYSICIAN: ROBERT NAM DO PROCEDURE(s): HWOCT - HEAD WITHOUT CONTRAST REASON: seizure ORDER NUMBER(s): [id number], ACCESSION NUMBER(s): [id number] CT BRAIN WITHOUT CONTRAST HISTORY: seizure TECHNIQUE: Axial scans were obtained from the skull base through the vertex without contrast. Sagittal and coronal reformats were generated. One or more of the following radiation dose reduction techniques were used for this examination: automated exposure control, adjustment of the mA and/or kV according to patient size, use of iterative reconstruction technique. COMPARISON: CT HEAD WITHOUT CONTRAST on DOS: 10/22/23 FINDINGS: No acute intracranial hemorrhage or evidence of large vessel territorial infarction identified at this time. No midline shift. The basilar cisterns are patent. Hernandez-white differentiation appears relatively preserved. The visualized paranasal sinuses and mastoid air cells are clear. No grossly displaced calvarial abnormalities identified. IMPRESSION: No acute intracranial findings. If there is persistent clinical concern, MRI may be obtained to further evaluate. ATED BY: HIMANSHU MURPHY MD DICTATED DATE/TIME: 02/12/252327 SIGNED BY: HIMANSHU MURPHY MD SIGNED DATE/TIME: 02/12/252327 CC: Time of 1ST Reevaluation: 15:42 Reevaluation 1ST: Unchanged Time of 2ND Reevaluation: 16:52 (The case was discussed with the neurology on- call team (HPI, physical exam, labs and diagnostic tests that were available at the time of disposition, ED course, treatment plan) on the phone. They agreed to come and evaluate the patient. They recommend no additional medications at this time. Dr. Uriarte. He said that he has seen this patient before) Patient Education/Counseling: Diagnosis, Treatment Family Education/Counseling: No Family Present Comments Although patient took her medications this morning and she received Versed prior to arrival. Patient had a witnessed seizure here in the ED and received Ativan. I will admit the patient to the hospital for further neurological evaluation. Patient presented with the above HPI.--recurrent seizure----workup was initiated. patient was found with the above mentioned diagnosis. the following medications were ordered: please refer to order lists of meds and tests obtained by myself Dr. Nam. Patient ED course and VS have been stabilized. Patient has been reassessed in the ED and remained in a stable condition. Pertinent incidental findings were discussed with the patient and/or family. Patient/family voices understanding and is agreeable with plan. Patient has been observed in the ED adequate length of time to insure improvement/stability. Escalation of care considered: Consideration of escalation to observation or admission Neurology was consulted. Patient was ADMITTED to the medicine team for further evaluation and treatment of their presentation. All the reports of any imaging studies that were ordered by myself were reviewed by myself. Departure 1 Departure Time of Disposition: 16:08 Impression: Primary Impression: Recurrent seizures Disposition: ADMITTED INPATIENT Admit to: [facility] Condition: Guarded Discharged With: Self Critical Care Note Critical Care Time?: Yes (55 min-critical care time only) I personally scribed for ROBERT NAM DO ([email or web address]) on 02/12/25 at 15:43. Electronically submitted by Chiquita Linn ([employer]). I personally scribed for ROBERT NAM DO ([email or web address]) on 02/12/25 at 16:44. Electronically submitted by Chiquita Linn ([facility]). ROBERT NAM DO Feb 12, 2025 15:43
[2025-02-12 15:59] LABS: Basophils # (auto) 0 10 ^3/uL (0-0.2); Basophils % (auto) 0.7 % (0.0-2.0); Eosinophils # (auto) 0 10 ^3/uL (0-0.8); Eosinophils % (auto) 0.6 % (0.0-7.0); Hematocrit 42.8 % (36.0-46.0); Hemoglobin 15.2 g/dL (12.2-16.2); Lymphocytes # (auto) 1.8 10 ^3/uL (0.4-5.4); Lymphocytes % (auto) 31.7 % (10.0-50.0); Mean Corpuscular Hemoglobin 31.1 pg (28.0-32.0); Mean Corpuscular Hgb Conc. 35.5 g/dL (32.0-36.0); Mean Corpuscular Volume 87.6 fL (80.0-100.0); Monocytes # (auto) 0.4 10 ^3/uL (0-1.3); Monocytes % (auto) 7.4 % (0.0-12.0); Neutrophils # (auto) 3.3 10 ^3/uL (1.6-8.6); Neutrophils % (auto) 59.6 % (37.0-80.0); Nucleated Red Blood Cells % 0.2 %; Platelet Count (auto) 290 10^3/uL (140-450); Red Blood Cells 4.89 10^6/uL (4.0-5.20); Red Cell Distribution Width 13.1 % (11.8-14.3); White Blood Cell 5.6 10^3/uL (4.4-10.8)
[2025-02-12 16:12] LABS: Alanine Aminotransferase 10 U/L (7-40); Alkaline Phosphatase 70 U/L (46-116); Anion Gap 12 (5-15); BUN/Creatinine Ratio 7.8 (10.0-20.0); Calcium 9.9 mg/dL (8.7-10.4); Glucose 89 mg/dL (74-106); Magnesium 2.1 mg/dL (1.6-2.6); Potassium 3.8 mmol/L (3.5-5.1); Sodium 143 mmol/L (136-145); Total Protein 7.8 g/dL (5.7-8.2)
[2025-02-12 16:16] LABS: Aspartate Aminotransferase 11 U/L (13-40); Blood Urea Nitrogen 8 mg/dL (9-23); Carbon Dioxide 18 mmol/L (20-31); Chloride 113 mmol/L (98-107)
[2025-02-12 16:36] LABS: Lactic Acid w/Reflex 2.7 mmol/L (0.4-2.0)
[2025-02-12] MEDS ORDERED: MORPHINE SULFATE INJ 2 MG/ml SYRG IV PRN (16:45)
[2025-02-12] MEDS ORDERED: NITROGLYCERIN 0.4 MG SL TAB SL PRN (16:45)
[2025-02-12] MEDS: SODIUM CHLORIDE 0.9% 1,000 ML IV ONE (16:49)
[2025-02-12] MEDS: TOPIRAMATE 100 MG TAB PO ONE ×2 (16:57→17:17)
--- NOTE | 2025-02-12 17:08 | DVHHP2 ---
History of Present Illness Reason for Visit: Seizures History of Present Illness Patient was a 24-year-old female transferred to the emergency room after having a witnessed seizure at her neurologist's office this a.m.. Apparently, the patient had other multiple seizure-type activities in route to the hospital, with the patient receiving a total of Versed 5 mg IV and route. While in the emergency room, the patient was also noted to have another seizure, treated with Ativan at that time. At the time of assessment, the patient continues to present with a postictal state. She was alert and oriented x1. According to medical records and pharmacy database, the patient was currently taken Topamax 150 mg p.o. twice a day as well as valproic acid 500 mg p.o. daily. No other history is available at this time. Cardiovascular: AFIB, CHF [employer]CR[employer] IRONWORKER: Seizure Past Surgical History Unable to obtain history Family History: None Review of Systems Review of Systems Patient was currently postictal at this time. Allergies: Coded Allergies: Levetiracetam (Verified Allergy, Severe, 02/12/25) Phenytoin (Verified Allergy, Unknown, 02/12/25) Medications Current Medications Medications Dose Ordered Sig/Jeimy Route Start Time Stop Time Status Last Admin Dose Admin Nitroglycerin 0.4 mg Q5MINP PRN SL 02/12/25 16:45 UNV Morphine Sulfate 2 mg Q30M PRN IV 02/12/25 16:45 UNV Lorazepam 1 mg Q5MINP PRN IV 02/12/25 16:45 UNV Exam Vital Signs Vital Signs Date Time Temp Pulse Resp B/P (MAP) Pulse Ox O2 Delivery O2 Flow Rate FiO2 02/12/25 15:33 140 02/12/25 15:30 98.4 16 102/51 (68) 97 98.4 General Appearance: Alert, mild distress, Other (Oriented x1) HEENT: Atraumatic, PERRLA Respiratory: Clear to auscultation, Normal air movement Cardiovascular: Normal S1, Normal S2, Other (Sinus tachycardia) Extremities: No clubbing, No cyanosis, No edema, Normal pulses, No tenderness/swelling Skin: No rashes, No breakdown, No significant lesion Psych/Mental Status: Other (Unable to assess at this time) Labs/Xrays Labs Test 02/12/25 16:07 02/12/25 15:42 Range/Units White Blood Count 5.6 4.4-10.8 10^3/uL Red Blood Count 4.89 4.0-5.20 10^6/uL Hemoglobin 15.2 12.2-16.2 g/dL Hematocrit 42.8 36.0-46.0 % Mean Corpuscular Volume 87.6 80.0-100.0 fL Mean Corpuscular Hemoglobin 31.1 28.0-32.0 pg Mean Corpuscular Hemoglobin Concent 35.5 32.0-36.0 g/dL Red Cell Distribution Width 13.1 11.8-14.3 % Platelet Count 290 140-450 10^3/uL Mean Platelet Volume 7.9 6.9-10.8 fL Neutrophils (%) (Auto) 59.6 37.0-80.0 % Lymphocytes (%) (Auto) 31.7 10.0-50.0 % Monocytes (%) (Auto) 7.4 0.0-12.0 % Eosinophils (%) (Auto) 0.6 0.0-7.0 % Basophils (%) (Auto) 0.7 0.0-2.0 % Neutrophils # (Auto) 3.3 1.6-8.6 10 ^3/uL Lymphocytes # (Auto) 1.8 0.4-5.4 10 ^3/uL Monocytes # (Auto) 0.4 0-1.3 10 ^3/uL Eosinophils # (Auto) 0 0-0.8 10 ^3/uL Basophils # (Auto) 0 0-0.2 10 ^3/uL Nucleated Red Blood Cells 0.2 % Sodium Level 143 136-145 mmol/L Potassium Level 3.8 3.5-5.1 mmol/L Chloride Level 113 H 98-107 mmol/L Carbon Dioxide Level 18 L 20-31 mmol/L Anion Gap 12 5-15 Blood Urea Nitrogen 8 L 9-23 mg/dL Creatinine 1.03 H 0.550-1.02 mg/dL Glomerular Filtration Rate Calc 77 >90 mL/min BUN/Creatinine Ratio 7.8 L 10.0-20.0 Serum Glucose 89 74-106 mg/dL Lactic Acid Level 2.7 *H 0.4-2.0 mmol/L Calcium Level 9.9 8.7-10.4 mg/dL Magnesium Level 2.1 1.6-2.6 mg/dL Total Bilirubin 1.0 0.2-1.0 mg/dL Aspartate Amino Transferase (AST) 11 L 13-40 U/L Alanine Aminotransferase (ALT) 10 7-40 U/L Alkaline Phosphatase 70 46-116 U/L Troponin I High Sensitivity < 3 L </=34 ng/L Total Protein 7.8 5.7-8.2 g/dL Albumin 5.0 H 3.2-4.8 g/dL Assessment/Plan Assessment/Plan Impression: -breakthrough seizures -history of seizure disorder -obesity Plan: -admit to telemetry unit -check Topamax and Depakote level -neurology consultation -check prolactin and CPK level -Ativan 1 mg IV p.r.n. breakthrough seizure -start home antiepileptics after receiving lab results -repeat labs in a.m. Total time spent with patient discussing and formulating plan of care: 35 minutes. This medical document was created using an electronic medical record system with [employer] dictation system. Although this document has been carefully reviewed, there may still be some phonetic and typographical errors. These areas are purely typographical due to imperfections of the software programs, and do not reflect any compromise in the patient's medical care. Plan discussed with: Patient, Other (RN) My Orders Orders - YANIV BURNETT [facility] Procedure Category Date Status Time Prolactin LAB 02/12/25 Logged 16:44 Creatine Kinase LAB 02/12/25 Logged 16:44 Admit ADMIT 02/12/25 Transmitted 16:44 Nitroglycerin PHA 02/12/25 Logged Sublingual (Ntrostat 16:45 Morphine Sulfate PHA 02/12/25 Logged Injection 16:45 Stat Ekg For Chest [facility] 02/12/25 In Process Pain 16:44 Notify Md Of Changes AVA 02/12/25 In Process From Base 16:44 Substance Abuse Clinician For AVA 02/12/25 In Process 24 Hours 16:44 Emergency Dysrhythmia AVA 02/12/25 In Process Protocol 16:44 Rhythm Strips Once AVA 02/12/25 In Process Every Shift 16:44 Oxygen By Nasal RT 02/12/25 Transmitted Cannula 16:44 Lorazepam 2mg/Ml Inj PHA 02/12/25 Logged (Ativan Inj) 16:45 Drug Screen LAB 02/12/25 Logged 16:44 Valproic Acid LAB 02/12/25 Logged (Depakene) 16:48 Basic Metabolic Panel LAB 02/13/25 Verified 04:00 Complete Blood Count LAB 02/13/25 Verified 04:00 Date of Service: Feb 12, 2025 Billing Provider: YANIV BURNETT NP Common Visit Codes: [id number] INP/OBS CARE (HIGH) YANIV BURNETT NP Feb 12, 2025 17:08
[2025-02-12] MEDS: LORazepam 2MG/ML-1ML VIAL IV PRN (22:10)
--- NOTE | 2025-02-12 22:43 | DVHINCON2 ---
Date of service: Feb 12, [address] Duarte Reason for Consultation Recurrent seizures History of Present Illness Ms. Venkat Neff is a 24 years old right-handed female with a history of anxiety, depression, the patient came to the [facility] on 02/12/25 with seizure activity. At this time, she is alert and oriented x 4, able to provide a history. Her mother is in the room I saw her on 09/14/2023 for seizure activity (3 witnessed grand mal seizure in the ER with unremarkable HCO3), 10/22/2023 (4 seizures on 10/20/23, 4 on 10/21/2023) for seizure On 02/12/25, when she was in her family doctor office, to have x-ray, she had 3 seizure attacks, she had another 3 when she was in the ambulance, and a 3-4 in the emergency room and her mother confirmed the history. The patient was claimed that she has complete amnesia about all her seizure activity, and she did not have biting or incontinence One ER nurse witnessed one of her seizures, in that the patient was shaking in the arms and legs, with a left-sided more affected, eyes were closed, without biting or incontinence, the seizure was about 2 minutes Her seizure disorder started in 08/2022. She has complete amnesia about all her seizure activities, but she remembers her hearing noise before the seizures, she was said to have shaking all of body, complete nonresponsive, and she bit her tongue. 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 Angi Murphy, she was on topiramate, likely 100 mg t.i.d. She was on Trileptal with the help She denies a history of traumatic brain injury, intracranial infection, or family history of seizure disorder CBC, 10/22/2023: Unremarkable CMP, 10/22/2023: Unremarkable HCO3, 09/13/2023: 24, 10/22/2023: 22, 02/12/2025: 18 Lactic acid, 02/12/25: 2.7 CT head, 09/13/2023: Minimal sinus disease otherwise unremarkable study CT head, 10/22/2023: Possible asymmetry in hippocampal structures. There may be atrophic changes involving the right hippocampus Past Medical History Seizures, anxiety, depression Past Surgical History Tonsillectomy Family History: Depression G8 FATHER Diabetes mellitus G8 FATHER Hypertension G8 FATHER Family History Hypertension, diabetes, anxiety, both parents have depression Social History She is nontobacco smoker, she denies a history of alcohol recreational substance abuse Allergies: Coded Allergies: Levetiracetam (Verified Allergy, Severe, 02/12/25) Phenytoin (Verified Allergy, Unknown, 02/12/25) Home Meds Active Scripts Cephalexin Monohydrate (Cephalexin) 500 Mg Tab, 1 TAB PO QID for 10 Days, #40 TAB Prov:STEPHANIE MONTES MD 08/02/24 Reported Medications Oxcarbazepine (Trileptal) 600 Mg Tab, 1 TAB PO BID, #60 TAB 09/15/23 Current Medications Current Medications Medications (Trade) Dose Ordered Sig/Jeimy Route PRN Reason Start Time Stop Time Status Last Admin Nitroglycerin (Ntrostat Sublingual) 0.4 mg Q5MINP PRN SL FOR CHEST PAIN 02/12/25 16:45 Morphine Sulfate 2 mg Q30M PRN IV FOR CHEST PAIN 02/12/25 16:45 Lorazepam (Ativan Inj) 1 mg Q5MINP PRN IV SEIZURES 02/12/25 16:45 02/12/25 22:10 Topiramate (Topamax) 150 mg Q12HR PO 02/12/25 22:00 Review of Systems As above, the other systems are negative Vital Signs Vital Signs Date Time Temp Pulse Resp B/P (MAP) Pulse Ox O2 Delivery O2 Flow Rate FiO2 02/12/25 22:00 101 18 116/74 (88) 99 02/12/25 20:00 98.8 98.8 Physical Exam GENERAL EXAM: General: the patient is well developed and nourished. No acute distress. HEENT: Normocephalic, neck is supple, no carotid bruits. No mass RESPIRATORY: Normal respiratory effort with symmetrical lung expansion. Lungs clear to auscultation. CARDIOVASCULAR: Regular rate and rhythm with no murmurs. S1, S2. ABDOMEN: Soft, nontender, normal bowel sound NEUROLOGICAL: MENTAL STATUS: Awake and alert. Oriented to person, place, time and general circumstances. Able to give personal history SPEECH, LANGUAGE, HIGHER CORTICAL FUNCTION: no aphasia or dysathria. CRANIAL NERVES: #2: Intact visual welch to confrontation. The optic discs were sharp #3,4,6: Pupils are equal, round and reactive. EOMs full and conjugate. Mild gaze evoked horizontal nystagmus #5: Facial sensation intact in all three divisions bilaterally. Mandibular strength intact. #7: Facial muscles symmetrical and strength intact. #8: Hearing grossly normal to voice. #9,10: Uvula and soft palate rise in the midline. Swallow and voice are normal. #11: Trapezius and sternomastoid strength intact bilaterally. #12: Tongue midline. No fasciculations or atrophy. SENSATION: Sensation to touch and pinprick is normal. MOTOR: Normal tone in the upper and lower extremity. Normal muscle bulk. No fasciculations. No abnormal movements or posturing. Muscle strength of the major groups in the upper extremities is 5/5. Muscle strength of the major groups in the lower extremities is 5/5. REFLEXES: Deep tendon reflexes are symmetrical. No pathological reflexes. CEREBELLAR/COORDINATION: Finger to nose is normal bilaterally. GAIT/STATION: deferred Labs/Diagnostic Data Labs Test 02/12/25 18:55 02/12/25 18:10 02/12/25 16:59 02/12/25 16:07 Range/Units Troponin I High Sensitivity < 3 L </=34 ng/L Lactic Acid Level 1.3 0.4-2.0 mmol/L Creatine Kinase 63 34-145 U/L Valproic Acid Level < 3.0 L 50-100 ug/mL Test 02/12/25 15:42 Range/Units White Blood Count 5.6 4.4-10.8 10^3/uL Red Blood Count 4.89 4.0-5.20 10^6/uL Hemoglobin 15.2 12.2-16.2 g/dL Hematocrit 42.8 36.0-46.0 % Mean Corpuscular Volume 87.6 80.0-100.0 fL Mean Corpuscular Hemoglobin 31.1 28.0-32.0 pg Mean Corpuscular Hemoglobin Concent 35.5 32.0-36.0 g/dL Red Cell Distribution Width 13.1 11.8-14.3 % Platelet Count 290 140-450 10^3/uL Mean Platelet Volume 7.9 6.9-10.8 fL Neutrophils (%) (Auto) 59.6 37.0-80.0 % Lymphocytes (%) (Auto) 31.7 10.0-50.0 % Monocytes (%) (Auto) 7.4 0.0-12.0 % Eosinophils (%) (Auto) 0.6 0.0-7.0 % Basophils (%) (Auto) 0.7 0.0-2.0 % Neutrophils # (Auto) 3.3 1.6-8.6 10 ^3/uL Lymphocytes # (Auto) 1.8 0.4-5.4 10 ^3/uL Monocytes # (Auto) 0.4 0-1.3 10 ^3/uL Eosinophils # (Auto) 0 0-0.8 10 ^3/uL Basophils # (Auto) 0 0-0.2 10 ^3/uL Nucleated Red Blood Cells 0.2 % Sodium Level 143 136-145 mmol/L Potassium Level 3.8 3.5-5.1 mmol/L Chloride Level 113 H 98-107 mmol/L Carbon Dioxide Level 18 L 20-31 mmol/L Anion Gap 12 5-15 Blood Urea Nitrogen 8 L 9-23 mg/dL Creatinine 1.03 H 0.550-1.02 mg/dL Glomerular Filtration Rate Calc 77 >90 mL/min BUN/Creatinine Ratio 7.8 L 10.0-20.0 Serum Glucose 89 74-106 mg/dL Calcium Level 9.9 8.7-10.4 mg/dL Magnesium Level 2.1 1.6-2.6 mg/dL Total Bilirubin 1.0 0.2-1.0 mg/dL Aspartate Amino Transferase (AST) 11 L 13-40 U/L Alanine Aminotransferase (ALT) 10 7-40 U/L Alkaline Phosphatase 70 46-116 U/L Total Protein 7.8 5.7-8.2 g/dL Albumin 5.0 H 3.2-4.8 g/dL Prolactin 13.21 2.8-29.2 ng/mL Assessment Status epileptics, with a typical features Grand mal seizure, and 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 Ativan for seizure breakthrough Ativan for anxiety Follow up with her doctors on discharge More recommendation per clinical course Okay to discharge if the patient is seizure-free for 24 hours Prognosis: Poor This medical document was created using an electronic medical record system with [employer] dictation system. Although this document has been carefully reviewed, there may still be some phonetic and typographical errors. These areas are purely typographical due to imperfections of the software programs, and do not reflect any compromise in the patient's medical care. Plan discussed with: Patient, Other TIM CALIXTO MD Feb 12, 2025 22:43
[2025-02-12] MEDS: TOPIRAMATE 100 MG TAB PO SCH (22:50)
--- NOTE | 2025-02-12 23:14 | DVH ---
EXAMINATION: AP portable chest radiograph CLINICAL HISTORY: seizure COMPARISON: XY CHEST XRAY 1 VIEW on DOS: 10/23/23 FINDINGS: Multiple wires overlie the thorax, partially obscuring evaluation. No dominant consolidations in the visualized lung welch. The costophrenic angles appear clear. No d efinite pleural effusion or pneumothorax. The cardiomediastinal silhouette appears within normal limi ts given technique. IMPRESSION: No acute cardiopulmonary findings as visualized.
--- NOTE | 2025-02-12 23:31 | DVH ---
CT BRAIN WITHOUT CONTRAST HISTORY: seizure TECHNIQUE: Axial scans were obtained from the skull base through the vertex without contrast. Sagitta l and coronal reformats were generated. One or more of the following radiation dose reduction techniq ues were used for this examination: automated exposure control, adjustment of the mA and/or kV accord ing to patient size, use of iterative reconstruction technique. COMPARISON: CT HEAD WITHOUT CONTRAST on DOS: 10/22/23 FINDINGS: No acute intracranial hemorrhage or evidence of large vessel territorial infarction identified at thi s time. No midline shift. The basilar cisterns are patent. Hernandez-white differentiation appears rela tively preserved. The visualized paranasal sinuses and mastoid air cells are clear. No grossly displaced calvarial abno rmalities identified. IMPRESSION: No acute intracranial findings. If there is persistent clinical concern, MRI may be obtained to further evaluate.
[2025-02-12 23:34] VITALS: BP 130/83; PULSE 107; RESP 18; TEMP 98.2; O2SAT 98
[2025-02-13] VITALS (9 sets, daily range): BP systolic 97–132; BP diastolic 58–83; PULSE 53–107; RESP 15–18; TEMP 97.9–98.7; O2SAT 97–100
[2025-02-13 07:27] LABS: Basophils # (auto) 0 10 ^3/uL (0-0.2); Basophils % (auto) 0.4 % (0.0-2.0); Eosinophils # (auto) 0.1 10 ^3/uL (0-0.8); Eosinophils % (auto) 1.5 % (0.0-7.0); Hematocrit 41.8 % (36.0-46.0); Hemoglobin 14.2 g/dL (12.2-16.2); Lymphocytes # (auto) 2.1 10 ^3/uL (0.4-5.4); Lymphocytes % (auto) 37.6 % (10.0-50.0); Mean Corpuscular Hemoglobin 30.9 pg (28.0-32.0); Mean Corpuscular Hgb Conc. 33.9 g/dL (32.0-36.0); Mean Corpuscular Volume 91.3 fL (80.0-100.0); Monocytes # (auto) 0.5 10 ^3/uL (0-1.3); Monocytes % (auto) 8.4 % (0.0-12.0); Neutrophils % (auto) 52.1 % (37.0-80.0); Nucleated Red Blood Cells % 0.1 %; Platelet Count (auto) 258 10^3/uL (140-450); Red Blood Cells 4.58 10^6/uL (4.0-5.20); Red Cell Distribution Width 13.2 % (11.8-14.3); White Blood Cell 5.7 10^3/uL (4.4-10.8)
[2025-02-13 07:28] LABS: Calcium 9.5 mg/dL (8.7-10.4); Potassium 3.6 mmol/L (3.5-5.1); Sodium 141 mmol/L (136-145)
[2025-02-13 07:29] LABS: Anion Gap 10 (5-15)
[2025-02-13 07:34] LABS: BUN/Creatinine Ratio 7.9 (10.0-20.0); Blood Urea Nitrogen 7 mg/dL (9-23); Carbon Dioxide 18 mmol/L (20-31); Chloride 113 mmol/L (98-107); Glucose 84 mg/dL (74-106)
--- NOTE | 2025-02-13 10:17 | ECG ---
[facility] Test Date: 2025-02-12 Test Time: 15:33:48 Pat Name: JULIAN APONTE Department: ED Room: 0223T B Gender: F [employer]: YESSY : 2000 Requested By: ROBERT NAM Order Number: [id number] Reading MD: Johnson Farr Measurements Intervals [place] Rate: 140 P: 55 AR: 184 QRS: 53 QRSD: 75 T: 236 QT: 347 QTc: 530 Interpretive Statements Sinus tachycardia LAE, consider biatrial enlargement Low voltage, precordial leads Abnormal T, consider ischemia, diffuse leads Prolonged QT interval Baseline wander in lead(s) II,III,aVR,aVF,V4,V5,V6 Electronically Signed On 02-14-2025 13:08:05 PDT by Johnson Farr Please click the below link to view image of tracing.
--- NOTE | 2025-02-13 10:29 | DVHPN2 ---
Subjective Patient reports having anxiety and depression. Reviewed: Care Plan, H&P, Labs, Medications Changes from previous H/P or p: No Changes General: Per HPI Objective Vitals Vital Signs Date Time Temp Pulse Resp B/P (MAP) Pulse Ox O2 Delivery O2 Flow Rate FiO2 02/13/25 08:00 Room Air* 0 21 02/13/25 05:00 98.7 53 18 97/62 (74) 98 98.7 Intake/Output Intake and Output 02/13/25 07:00 Intake Total 1000 ml Balance 1000 ml Intake Oral 0 ml IV Total 1000 ml General Appearance: Alert, Oriented X3, Cooperative HEENT: Atraumatic, PERRLA Lungs: Normal air movement Cardiovascular: Normal S1, Normal S2 Musculoskeletal: Normal sensory function, Normal motor function Skin: Dry, Intact Psych/Mental Status: Mental status NL, Mood NL Medications Current Medications Medications Dose Ordered Sig/Jeimy Route Start Time Stop Time Status Last Admin Dose Admin Nitroglycerin 0.4 mg Q5MINP PRN SL 02/12/25 16:45 Morphine Sulfate 2 mg Q30M PRN IV 02/12/25 16:45 Lorazepam 1 mg Q5MINP PRN IV 02/12/25 16:45 02/12/25 22:10 1 MG Topiramate 150 mg Q12HR PO 02/12/25 22:00 02/13/25 10:10 150 MG Laboratory Results Laboratory Tests 02/13/25 06:35 Chemistry Test 02/12/25 15:42 02/13/25 06:35 Albumin 5.0 g/dL (3.2-4.8) H Calcium Level 9.9 mg/dL (8.7-10.4) 9.5 mg/dL (8.7-10.4) Magnesium Level 2.1 mg/dL (1.6-2.6) Total Protein 7.8 g/dL (5.7-8.2) LFT Test 02/12/25 15:42 Alanine Aminotransferase (ALT) 10 U/L (7-40) Alkaline Phosphatase 70 U/L (46-116) Aspartate Amino Transferase (AST) 11 U/L (13-40) L Total Bilirubin 1.0 mg/dL (0.2-1.0) Labs and/or images reviewed: Labs reviewed by me, Image(s) reviewed by me Assessment/Plan Assessment/Plan Impression: -breakthrough seizures -history of seizure disorder -obesity Plan: Events: No events overnight. Patient was report having history of depression anxiety that she has discussed with her psychiatrist. She was currently on no medications. Recommendations by Neurology has been reviewed. Patient also noted to have normal CPK and prolactin level after seizure activity. We will monitor for the next 24 hours for possible discharge. -check Topamax and Depakote level -neurology consultation -check prolactin and CPK level -Ativan 1 mg IV p.r.n. breakthrough seizure -start home antiepileptics after receiving lab results Total time spent with patient discussing and formulating plan of care: 35 minutes. This medical document was created using an electronic medical record system with [employer] dictation system. Although this document has been carefully reviewed, there may still be some phonetic and typographical errors. These areas are purely typographical due to imperfections of the software programs, and do not reflect any compromise in the patient's medical care. Plan discussed with: Patient, Other (RN) My Orders Orders - YANIV BURNETT NP Procedure Category Date Status Time Admit ADMIT 02/12/25 Transmitted 16:44 Nitroglycerin PHA 02/12/25 In Process Sublingual (Ntrostat 16:45 Morphine Sulfate PHA 02/12/25 In Process Injection 16:45 Stat Ekg For Chest AVA 02/12/25 In Process Pain 16:44 Notify Md Of Changes AVA 02/12/25 In Process From Base 16:44 Nursing Staffing Coordinator For AVA 02/12/25 In Process 24 Hours 16:44 Emergency Dysrhythmia AVA 02/12/25 In Process Protocol 16:44 Rhythm Strips Once AVA 02/12/25 In Process Every Shift 16:44 Oxygen By Nasal RT 02/12/25 Transmitted Cannula 16:44 Lorazepam 2mg/Ml Inj PHA 02/12/25 In Process (Ativan Inj) 16:45 Drug Screen LAB 02/12/25 Logged 16:44 Topiramate (Topamax) PHA 02/12/25 In Process 22:00 * Dietary Consult CONS 02/13/25 Transmitted 05:03 Acetaminophen Tablet PHA 02/13/25 Verified (Tylenol Tablet) 10:30 Date of Service: Feb 13, 2025 Billing Provider: YANIV BURNETT NP Common Visit Codes: [id number] INP/OBS CARE(HIGH) YANIV BURNETT NP Feb 13, 2025 10:29
[2025-02-14 01:00] VITALS: BP 110/67; PULSE 72; RESP 17; TEMP 98.4; O2SAT 100
[2025-02-14 05:00] VITALS: BP 109/56; PULSE 92; RESP 18; TEMP 98.4; O2SAT 99
[2025-02-14 08:00] VITALS: PULSE 46
[2025-02-14 09:25] VITALS: BP 126/85; PULSE 88; RESP 18; TEMP 98.4; O2SAT 98
[2025-02-14] MEDS: ONDANSETRON HCL 4 MG/2 ML VIAL IV PRN (10:52)
[2025-02-14] MEDS: ACETAMINOPHEN 325 MG TAB PO PRN (11:50)
[2025-02-14 13:00] VITALS: BP 127/77; PULSE 80; RESP 20; TEMP 98.4; O2SAT 99
--- NOTE | 2025-02-14 15:25 | DVH ---
Date: 02/14/2025 12:21 PM Examination: XY KUB ABDOMEN SINGLE VIEW History: Nausea and abdominal pain Comparison: None TECHNIQUE: Frontal views of the abdomen was obtained. FINDINGS: Bowel gas pattern is unremarkable. The lung bases are unremarkable. No acute osseous abnormality identified. IMPRESSION: Nonobstructive bowel gas pattern.
--- NOTE | 2025-02-14 15:37 | DVHDS2 ---
Discharge Summary Date of Admission Feb 12, 2025 at 16:44 Date of Discharge: Feb 14, 2025 Admitting Diagnosis Breakthrough seizures Labs/Diagnostic Data: Laboratory Results Test 02/13/25 06:35 02/12/25 18:55 02/12/25 18:10 02/12/25 16:59 White Blood Count 5.7 10^3/uL (4.4-10.8) Red Blood Count 4.58 10^6/uL (4.0-5.20) Hemoglobin 14.2 g/dL (12.2-16.2) Hematocrit 41.8 % (36.0-46.0) Mean Corpuscular Volume 91.3 fL (80.0-100.0) Mean Corpuscular Hemoglobin 30.9 pg (28.0-32.0) Mean Corpuscular Hemoglobin Concent 33.9 g/dL (32.0-36.0) Red Cell Distribution Width 13.2 % (11.8-14.3) Platelet Count 258 10^3/uL (140-450) Mean Platelet Volume 7.8 fL (6.9-10.8) Neutrophils (%) (Auto) 52.1 % (37.0-80.0) Lymphocytes (%) (Auto) 37.6 % (10.0-50.0) Monocytes (%) (Auto) 8.4 % (0.0-12.0) Eosinophils (%) (Auto) 1.5 % (0.0-7.0) Basophils (%) (Auto) 0.4 % (0.0-2.0) Neutrophils # (Auto) 3.0 10 ^3/uL (1.6-8.6) Lymphocytes # (Auto) 2.1 10 ^3/uL (0.4-5.4) Monocytes # (Auto) 0.5 10 ^3/uL (0-1.3) Eosinophils # (Auto) 0.1 10 ^3/uL (0-0.8) Basophils # (Auto) 0 10 ^3/uL (0-0.2) Nucleated Red Blood Cells 0.1 % Sodium Level 141 mmol/L (136-145) Potassium Level 3.6 mmol/L (3.5-5.1) Chloride Level 113 mmol/L (98-107) Carbon Dioxide Level 18 mmol/L (20-31) Anion Gap 10 (5-15) Blood Urea Nitrogen 7 mg/dL (9-23) Creatinine 0.89 mg/dL (0.550-1.02) Glomerular Filtration Rate Calc 92 mL/min (>90) BUN/Creatinine Ratio 7.9 (10.0-20.0) Serum Glucose 84 mg/dL (74-106) Calcium Level 9.5 mg/dL (8.7-10.4) Troponin I High Sensitivity < 3 ng/L (</=34) Lactic Acid Level 1.3 mmol/L (0.4-2.0) Creatine Kinase 63 U/L (34-145) Valproic Acid Level < 3.0 ug/mL (50-100) Test 02/12/25 16:07 02/12/25 15:42 Magnesium Level 2.1 mg/dL (1.6-2.6) Total Bilirubin 1.0 mg/dL (0.2-1.0) Aspartate Amino Transferase (AST) 11 U/L (13-40) Alanine Aminotransferase (ALT) 10 U/L (7-40) Alkaline Phosphatase 70 U/L (46-116) Total Protein 7.8 g/dL (5.7-8.2) Albumin 5.0 g/dL (3.2-4.8) Prolactin 13.21 ng/mL (2.8-29.2) Other Laboratory Tests 02/13/25 06:35 Brief Hx & Hospital Course: History of Present Illness Patient was a 24-year-old female transferred to the emergency room after having a witnessed seizure at her neurologist's office this a.m.. Apparently, the patient had other multiple seizure-type activities in route to the hospital, with the patient receiving a total of Versed 5 mg IV and route. While in the emergency room, the patient was also noted to have another seizure, treated with Ativan at that time. At the time of assessment, the patient continues to present with a postictal state. She was alert and oriented x1. According to medical records and pharmacy database, the patient was currently taken Topamax 150 mg p.o. twice a day as well as valproic acid 500 mg p.o. daily. No other history is available at this time. Course of hospitalization: Immediately after her seizure activity in the emergency room, prolactin level as well as CPK was ordered which were both negative. Neurology consultation was obtained. Questionable diagnosis of psychogenic pseudoseizures were provided. Patient will be discharged home. She was instructed to follow up with her psychiatrist, as well as neurologist at their next available appointment. Physical examination General: Alert and Oriented x3. No acute distress. Well-nourished. Obese Eyes: EOMI. Anicteric. HENT: Moist mucous membranes. Lungs: Clear to auscultation bilaterally. No accessory muscle use. Cardiovascular: Regular rate and rhythm. No murmur. No JVD. Abdomen: Soft, non-tender and non-distended. No palpable masses. Extremities: No edema. Non-tender. Skin: No rashes or lesions. Warm. Neurologic: No focal neurological deficits. CN II-XII grossly intact, but not individually tested. Psychiatric: Cooperative. Appropriate mood and affect. Total time spent with patient discussing and formulating plan of care: 35 minutes. This medical document was created using an electronic medical record system with [employer] dictation system. Although this document has been carefully reviewed, there may still be some phonetic and typographical errors. These areas are purely typographical due to imperfections of the software programs, and do not reflect any compromise in the patient's medical care. Consults/Reason for consult Neurology: Breakthrough seizure activity Condition at Discharge: Fair Final Diagnosis/Problems List Breakthrough seizure activity Secondary diagnosis: Obesity Discharge Disposition: Home Discharge Instruct/Medications Diet: Regular Activity: No Restrictions, As Tolerated Follow Up/Referral: Follow up with primary neurologist Follow up with psychiatrist Medications: Continue all home medications 36 Discharge Statement: "Patient was advised to return to the ER or call 911 if any headaches, dizziness, shortness of breath, chest pain, abdominal pain, bleeding, fevers, or worsening of medical condition. Patient was counseled about treatment plan, medications, possible side effects, patientverbalized understanding. All questions were answered to the best of my ability. This discharge took greater then 30 minutes in planning, reviewing documentation, counseling the patient, and discussing with other team members." ASSESSMENT ASSESSMENT Assessment Breakthrough seizure activity Date of Service: Feb 14, 2025 Billing Provider: YANIV BURNETT NP Common Visit Codes: [id number]/OBS DISCH DAY >30min YANIV BURNETT NP Feb 14, 2025 15:37
== END 2025-02-14 16:46 | disposition home or self-care (01) | DRG 53 ==
LOC: EDUNIT# 15:30 → ER 15:30 → EDBD 15:30 → OVERFLOW 16:44 → TELE-CENTR 23:34
PROVIDERS: ADMIT Nurse Practitioner Acute Care; ATTEND Nurse Practitioner Acute Care
DX: G40.909 Epilepsy, unspecified, not intractable, without status epilepticus (principal); E87.20 Acidosis, unspecified; I50.9 Heart failure, unspecified; E66.9 Obesity, unspecified; F41.9 Anxiety disorder, unspecified; F32.A Depression, unspecified; F17.200 Nicotine dependence, unspecified, uncomplicated; I48.91 Unspecified atrial fibrillation; Z83.3 Family history of diabetes mellitus; Z82.49 Family history of ischemic heart disease and other diseases of the circulatory system; Z79.899 Other long term (current) drug therapy; Z81.8 Family history of other mental and behavioral disorders; Z88.8 Allergy status to other drugs, medicaments and biological substances; Z68.31 Body mass index [BMI] 31.0-31.9, adult
CPT/HCPCS: 36415; 70450; 71045; 74018; 80048; 80053; 80164; 80201; 82550; 83605; 83735; 84146; 84484; 85025; 93005; 96361; 96374; G0378; J2405